=== PATIENT | female | born 1945 | race Caucasian/White ===

== ENCOUNTER → 2024-06-21 | Outpatient (CLI) | payer MEDICARE | END | disposition home or self-care (01) | LOC: RESCLI 09:54 | PROVIDERS: ATTEND Internal Medicine | DX: I48.91 Unspecified atrial fibrillation (principal); E03.9 Hypothyroidism, unspecified; Z98.890 Other specified postprocedural states; N39.41 Urge incontinence; F32.9 Major depressive disorder, single episode, unspecified; F41.1 Generalized anxiety disorder; K86.89 Other specified diseases of pancreas; K90.89 Other intestinal malabsorption; Z90.49 Acquired absence of other specified parts of digestive tract; Z86.16 Personal history of COVID-19; Z87.891 Personal history of nicotine dependence; E78.5 Hyperlipidemia, unspecified; Z79.899 Other long term (current) drug therapy; Z79.01 Long term (current) use of anticoagulants ==